=== PATIENT | female | born 1940 | race Caucasian/White ===

== ENCOUNTER 2018-08-03 11:07 | Observation (INO) | payer MEDICARE, OTHER ==
[~2018-08-03] VITALS: Ht 157.5 cm; Wt 61.7 kg
[2018-08-03] MEDS ORDERED: TOPROL XL25 MG PO (11:32)
[2018-08-03] MEDS ORDERED: PRAVACHOL20 MG PO (11:34)
[2018-08-03] MEDS ORDERED: MULTI-DAY VITAM1 TAB PO (11:34)
[2018-08-03] MEDS ORDERED: MIRALAX17 GM PO (11:34)
[2018-08-03 12:16] LABS: BASOPHILS 0.3 % (0-2); EOSINOPHILS 1.6 % (0-7); HEMATOCRIT 41.1 % (36.0-48.0); HEMOGLOBIN 13.8 g/dL (12-16); IMMATURE GRANULOCYTES 0.2 % (0-5); LYMPHOCYTES 17.3 % (15-50); MCH 29.2 pg (26.0-34.0); MCHC 33.6 g/dL (31.0-37.0); MCV 87.1 fL (80.0-100.0); MEAN PLATELET VOLUME 9.6 fL (7.4-10.4); MONOCYTES 10.6 % (2-11); PLATELET COUNT 336 10x3/uL (130-400); RBC 4.72 10x6/uL (4.00-5.40); RDW 13.5 % (11.5-14.5); WBC 9.4 10x3/uL (4.8-10.8)
[2018-08-03 12:26] LABS: ALKALINE PHOSPHATASE 66 U/L (46-116); ALT (SGPT) 19 U/L (10-68); BILIRUBIN - TOTAL 0.54 mg/dL (0.2-1.3); CALC OSMOLALITY 265 mosm/kg (275-300); CALCIUM 9.6 mg/dL (8.5-10.1); CARBON DIOXIDE 28.2 mmol/L (21.0-32.0); CHLORIDE - SERUM 97 mmol/L (98-107); CREATININE - SERUM 0.9 mg/dL (0.6-1.3); GLUCOSE 104 mg/dL (74-106); POTASSIUM - SERUM 3.7 mmol/L (3.5-5.1); PROTEIN - SERUM 8.6 g/dL (6.4-8.2); SODIUM 133 mmol/L (136-145); UREA NITROGEN 12 mg/dL (7-18); eGFR NON AFRICAN AMERICAN 64 mL/min (90-120)
[2018-08-03 12:29] LABS: AMYLASE - SERUM 65 U/L (25-115); LIPASE 193 U/L (73-393); MAGNESIUM - SERUM 2.1 mg/dL (1.8-2.4); PHOSPHOROUS 3.3 mg/dL (2.5-4.9); TROPONIN-I < 0.017 ng/mL (0.000-0.060)
[2018-08-03 12:45] LABS: APPEARANCE CLEAR (CLEAR); BILIRUBIN NEGATIVE (NEGATIVE); COLOR YELLOW (YELLOW); GLUCOSE NEGATIVE (NEGATIVE); KETONE MODERATE mg/dL (NEGATIVE); NITRITE NEGATIVE (NEGATIVE); PROTEIN NEGATIVE (NEGATIVE); SPECIFIC GRAVITY 1.015 (1.005-1.020); UROBILINOGEN NORMAL (NORMAL)
[2018-08-03 12:46] LABS: BACTERIA FEW /hpf (NONE SEEN); EPITHELIAL CELLS OCC /hpf (0-5); MUCUS <1+ /lpf (NONE SEEN); RED CELLS - URINE 0-5 /hpf (0-5); WHITE CELLS - URINE RARE /hpf (0-5)
[2018-08-03 13:28] VITALS: BP 145/63
[2018-08-03 15:30] VITALS: BP 140/52
[2018-08-03] MEDS ORDERED: METAMUCIL PACKE1 PKT PO (17:28)
[2018-08-03 17:30] VITALS: BP 134/54; Ht 157.5 cm; Wt 61.7 kg
[2018-08-03 17:40] VITALS: BP 134/54
[2018-08-03 20:00] VITALS: BP 111/46
[2018-08-04] VITALS: BP 108/53
[2018-08-04 04:00] VITALS: BP 110/60
[2018-08-04 06:14] LABS: BASOPHILS 0.2 % (0-2); EOSINOPHILS 4.3 % (0-7); HEMATOCRIT 34.9 % (36.0-48.0); HEMOGLOBIN 11.5 g/dL (12-16); IMMATURE GRANULOCYTES 0.2 % (0-5); LYMPHOCYTES 27.7 % (15-50); MCH 28.5 pg (26.0-34.0); MCV 86.4 fL (80.0-100.0); MEAN PLATELET VOLUME 9.2 fL (7.4-10.4); MONOCYTES 12.3 % (2-11); NEUTROPHILS 55.3 % (40-80); PLATELET COUNT 284 10x3/uL (130-400); RBC 4.04 10x6/uL (4.00-5.40); RDW 13.7 % (11.5-14.5)
[2018-08-04 06:22] LABS: WBC 5.5 10x3/uL (4.8-10.8)
[2018-08-04 06:28] LABS: ANION GAP 11.6 mmol/L (8-16); CALCIUM 8.5 mg/dL (8.5-10.1); CARBON DIOXIDE 26.7 mmol/L (21.0-32.0); CREATININE - SERUM 0.8 mg/dL (0.6-1.3); MAGNESIUM - SERUM 2.5 mg/dL (1.8-2.4); PHOSPHOROUS 2.6 mg/dL (2.5-4.9)
[2018-08-04 06:29] LABS: POTASSIUM - SERUM 4.3 mmol/L (3.5-5.1)
[2018-08-04 10:19] VITALS: BP 137/56
--- NOTE | 2018-08-04 12:18 | MORECARE ---
CASE MANAGEMENT DISCHARGE SUMMARY PATIENT: LORE WASHINGTON UNIT: [id number] ADM DATE: 08/03/18 AGE: 77 : 40 SEX: F ROOM/BED: D.2236 AUTHOR: CLARIBEL JEREZ PHYSICIAN: REFERRING PHYSICIAN: JEFE SAMANIEGO MD DATE OF SERVICE: 08/04/18 Discharge Plan Patient Name: LORE WASHINGTON Facility: [facility]:[place] : 1940 Planned Disposition: Home Anticipated Discharge Date: 08/04/18 Discharge Date: Expected LOS: 1 Initial Reviewer: [email or web address] Initial Review Date: 08/03/2018 Generated: 08/04/18 1:17 pm Coverage Notice Reviewer: [email or web address] Jesus Vick Notice Issued Date-Time: 08/03/2018 15:40 Notice Type: Medicare Outpatient Observation Notice Notice Delivered To: Patient Relationship to Patient: Pest Controller Assistant Name: Delivery Method: HAND - Hand Delivered Fatoumata Days: Prior Verbal Notification: Recipient Understood Notice: Recipient Signature: Med Rec Note Co-signed by Attending: Coverage Notice Comment: Patient Name: LORE WASHINGTON Page [phone] at 1218 All edits/amendments must be made on the electronic document DICTATION DATE: 08/04/181216 MEDIA THEORIST AND AUTHOR OF: ADRIANO 08/04/181216 RPT#: [id number] DC DATE: STATUS: ADM IN [facility] [address] [place] [address] END OF REPORT
--- NOTE | 2018-08-04 15:47 | MORECARE ---
CASE MANAGEMENT DISCHARGE SUMMARY PATIENT: LORE WASHINGTON UNIT: [id number] ADM DATE: 08/03/18 AGE: 77 : 40 SEX: F ROOM/BED: D.2236 AUTHOR: CLARIBEL JEREZ PHYSICIAN: REFERRING PHYSICIAN: JEFE SAMANIEGO MD DATE OF SERVICE: 08/04/18 Discharge Plan Patient Name: LORE WASHINGTON [facility] [facility] 1940 Planned Disposition: Home Anticipated Discharge Date: 08/04/18 Discharge Date: 08/04/2018 Expected LOS: 1 Initial Reviewer: [email or web address] Initial Review Date: 08/03/2018 Generated: 08/04/18 4:47 pm Coverage Notice Reviewer: [email or web address] Jesus Vick Notice Issued Date-Time: 08/03/2018 15:40 Notice Type: Medicare Outpatient Observation Notice Notice Delivered To: Patient Relationship to Patient: Cotton Ginner Helper Name: Delivery Method: HAND - Hand Delivered Fatoumata Days: Prior Verbal Notification: Recipient Understood Notice: Recipient Signature: Med Rec Note Co-signed by Attending: Coverage Notice Comment: Last DP export: 08/04/18 11:18 a Patient Name: LORE WASHINGTON Page [phone] at 1547 All edits/amendments must be made on the electronic document DICTATION DATE: 08/04/181546 PROGRAM AND RESEARCH COORDINATOR: ADRIANO 08/04/18 1547 RPT#: [id number] DC DATE:08/04/18 STATUS: DIS IN [facility] [address] [place] [address] END OF REPORT
== END 2018-08-04 12:25 | disposition home or self-care (01) ==
LOC: D.ER 11:07 → D.MS 15:56 → OBSVTIME 15:56 → D.MS 08-04 12:25
PROVIDERS: Family Medicine; ADMIT Internal Medicine Nephrology; ATTEND Internal Medicine Nephrology
DX: K59.00 Constipation, unspecified (principal); I10 Essential (primary) hypertension

== ENCOUNTER 2019-06-24 21:32 | Emergency (ER) | payer MEDICARE, OTHER ==
[~2019-06-24] VITALS: Ht 157.5 cm; Wt 61.4 kg
[~2019-06-24 21:32] MED LIST: METAMUCIL PACKE1 PKT PO; MIRALAX17 GM PO; MULTI-DAY VITAM1 TAB PO; PRAVACHOL20 MG PO; TOPROL XL25 MG PO
[2019-06-24 21:35] VITALS: Ht 157.5 cm; Wt 61.4 kg
[2019-06-24] MEDS ORDERED: CATAPRES0.1 MG PO (21:57)
[2019-06-24 22:07] LABS: BASOPHILS 0.3 % (0-2); EOSINOPHILS 2.6 % (0-7); HEMATOCRIT 41.1 % (36.0-48.0); HEMOGLOBIN 13.2 g/dL (12-16); IMMATURE GRANULOCYTES 0.1 % (0-5); LYMPHOCYTES 25.9 % (15-50); MCH 29.1 pg (26.0-34.0); MCHC 32.1 g/dL (31.0-37.0); MCV 90.5 fL (80.0-100.0); MEAN PLATELET VOLUME 9.4 fL (7.4-10.4); MONOCYTES 9.3 % (2-11); NEUTROPHILS 61.8 % (40-80); PLATELET COUNT 319 10x3/uL (130-400); RBC 4.54 10x6/uL (4.00-5.40); RDW 13.2 % (11.5-14.5); WBC 7.6 10x3/uL (4.8-10.8)
[2019-06-24 22:08] LABS: BILIRUBIN NEGATIVE (NEGATIVE); GLUCOSE NEGATIVE (NEGATIVE); KETONE NEGATIVE (NEGATIVE); NITRITE NEGATIVE (NEGATIVE); UROBILINOGEN NORMAL (NORMAL)
[2019-06-24 22:28] LABS: CALC OSMOLALITY 273 mosm/kg (275-300); CALCIUM 8.7 mg/dL (8.5-10.1); CARBON DIOXIDE 28.1 mmol/L (21.0-32.0); CHLORIDE - SERUM 102 mmol/L (98-107); GLUCOSE 110 mg/dL (74-106); POTASSIUM - SERUM 3.3 mmol/L (3.5-5.1); SODIUM 137 mmol/L (136-145); UREA NITROGEN 9 mg/dL (7-18); eGFR NON AFRICAN AMERICAN 57 mL/min (90-120)
[2019-06-24 22:41] LABS: ALBUMIN 3.8 g/dL (3.4-5.0); ALKALINE PHOSPHATASE 58 U/L (30-120); ALT (SGPT) 16 U/L (10-68); BILIRUBIN - TOTAL 0.33 mg/dL (0.2-1.3); MAGNESIUM - SERUM 1.9 mg/dL (1.8-2.4); PRO BNP 331 pg/mL (0-450); PROTEIN - SERUM 7.7 g/dL (6.4-8.2); TROPONIN-I < 0.017 ng/mL (0.000-0.060)
[2019-06-24 23:50] VITALS: BP 154/65
== END 2019-06-24 23:10 | disposition home or self-care (01) ==
LOC: D.ER 21:32
PROVIDERS: Family Medicine
DX: I10 Essential (primary) hypertension (principal)

== ENCOUNTER → 2020-05-15 18:31 | Outpatient (CLI) | payer MEDICARE, OTHER ==
[2019-06-24 21:35] VITALS: BMI 24.7
[~2020-05-15 18:31] MED LIST changes: +CATAPRES0.1 MG PO
== END | disposition home or self-care (01) ==
LOC: D.MAMMO 11:30
PROVIDERS: ATTEND Clinical Nurse Specialist Adult Health
DX: Z12.31 Encounter for screening mammogram for malignant neoplasm of breast (principal)